=== PATIENT | female | born 1960 | race African-American/Black ===

== ENCOUNTER 2017-02-28 06:29 | Emergency (ER) | payer BC ==
[~2017-02-28] VITALS: Ht 165.1 cm; Wt 83.0 kg
[~2017-02-28 06:29] MED LIST: ANACIN PO; ASPIRIN EC81 MG PO; DEXILANT30 MG PO; GLUCOPHAGE500 MG PO; Glucophage PO; KLOR-CON M2020 MEQ PO; LASIX 20 MG20 MG/TAB PO; LEVEMIR FL100 UNIT/M SC; LISINOPRIL10 MG PO; MECLIZINE25 MG PO; NAPROSYN500 MG PO; NOVOLIN 70/30 SC; PRAVASTATIN SOD20 MG PO; ZETIA10 MG PO
[2017-02-28 08:03] LABS: HEMATOCRIT 33.4 % (37.0-47.0); HEMOGLOBIN 11.8 g/dl (12.0-16.0); IMMATURE GRANULOCYTES 0.9 % (0.0-1.0); MEAN CELL VOLUME 98.5 fL CALC (80.0-100.0); MEAN CORPUSCULAR HGB 34.8 pG CALC (26.0-32.0); MEAN CORPUSCULAR HGB CONC 35.3 g/L CALC (32.0-36.0); NEUT# 3.15 thou/uL (2.00-7.15); RED BLOOD COUNT 3.39 mill/uL (4.20-5.60); RED CELL DISTRI WIDTH 13.2 % (11.5-15.5)
[2017-02-28 08:08] LABS: ALBUMIN 3.9 g/dL (3.2-5.0); ALKALINE PHOSPHATASE 167 u/l (38-126); ANION GAP 17 (6-22 (CALC)); BILIRUBIN, TOTAL 0.7 mg/dL (0.0-1.4); BUN 6 mg/dL (7-17); BUN/CREATININE RATIO 8 (12-20 (CALC)); CALCIUM 8.9 mg/dL (8.4-10.2); CARBON DIOXIDE 24 mmol/l (22-30); CHLORIDE 96 mmol/l (95-108); CREATININE 0.8 mg/dL (0.5-1.0); GFR > 60 ML/MIN (>=60 (CALC)); GFR FOR AFR.AMER. > 60 ML/MIN (>=60 (CALC)); GLUCOSE 153 mg/dL (65-105); POTASSIUM 3.1 mmol/l (3.5-5.1); SGOT/AST 101 u/l (14-36); SGPT/ALT 43 u/l (9-52); SODIUM 134 mmol/l (137-146); TOTAL PROTEIN 8.1 g/dL (6.3-8.2)
[2017-02-28 08:22] LABS: MYOGLOBIN 30 ng/mL (0 - 62)
[2017-02-28] MEDS ORDERED: PROTONIX40 M2 PO (08:36)
[2017-02-28] MEDS ORDERED: VICTOZA18 MG/3 ML SC (08:36)
[2017-02-28] MEDS ORDERED: NEURONTIN600 MG PO (08:37)
[2017-02-28 09:21] LABS: URINE BILIRUBIN - DIPSTICK NEGATIVE (NEGATIVE); URINE BLOOD DIPSTICK NEGATIVE (NEGATIVE); URINE CLARITY CLEAR; URINE COLOR YELLOW; URINE GLUCOSE - DIPSTICK NEGATIVE (NEGATIVE); URINE KETONE NEGATIVE (NEGATIVE); URINE LEUK ESTERASE NEGATIVE (NEGATIVE); URINE NITRITE - DIPSTICK NEGATIVE (Negative); URINE PROTEIN - DIPSTICK NEGATIVE (NEG-TRACE); URINE SPECIFIC GRAVITY <=1.005; URINE UROBILINOGEN - DIPSTICK 0.2 E.U./dL (0.2)
[2017-02-28 09:29] LABS: BARBITURATES NEGATIVE (NEGATIVE); COCAINE NEGATIVE (NEGATIVE); METHADONE NEGATIVE (NEGATIVE); OXCYCODONE NEGATIVE (NEGATIVE); TETRAHYDROCANNABIONOL NEGATIVE (NEGATIVE); TRICYLIC ANTIDEPRESSANTS NEGATIVE (NEGATIVE)
[2017-02-28 10:01] VITALS: BP 101/68
== END 2017-02-28 10:01 | disposition home or self-care (01) | DRG 948 ==
LOC: ED 06:29
PROVIDERS: Emergency Medicine
DX: R53.1 Weakness (principal); I10 Essential (primary) hypertension; E87.6 Hypokalemia; R42 Dizziness and giddiness

== ENCOUNTER 2017-12-21 22:25 | Emergency (ER) | payer BC ==
[~2017-12-21] VITALS: Ht 165.1 cm; Wt 79.5 kg
[~2017-12-21 22:25] MED LIST changes: +NEURONTIN600 MG PO; +PROTONIX40 M2 PO; +VICTOZA18 MG/3 ML SC
[2017-12-21 23:30] LABS: HEMATOCRIT 22.7 % (37.0-47.0); HEMOGLOBIN 7.8 g/dl (12.0-16.0); IMMATURE GRANULOCYTES 0.7 % (0.0-5.0); MEAN CELL VOLUME 107.6 fL CALC (80.0-100.0); MEAN CORPUSCULAR HGB CONC 34.4 g/L CALC (32.0-36.0); NEUT# 1.56 thou/uL (2.00-7.15); RED BLOOD COUNT 2.11 mill/uL (4.20-5.60); RED CELL DISTRI WIDTH 22.9 % (11.5-15.5)
[2017-12-22 00:22] VITALS: BP 99/64
== END 2017-12-22 00:23 | disposition home or self-care (01) | DRG 316 ==
LOC: ED 22:25
PROVIDERS: Family Medicine
DX: R58 Hemorrhage, not elsewhere classified (principal); C50.912 Malignant neoplasm of unspecified site of left female breast

== ENCOUNTER 2018-01-02 09:55 | Emergency (ER) | payer BC ==
[~2018-01-02] VITALS: Ht 165.1 cm; Wt 90.0 kg
[2018-01-02 10:50] VITALS: BP 144/88
== END 2018-01-02 10:45 | disposition home or self-care (01) | DRG 951 ==
LOC: ED 09:55
DX: Z48.00 Encounter for change or removal of nonsurgical wound dressing (principal); C76.1 Malignant neoplasm of thorax; E11.9 Type 2 diabetes mellitus without complications; I10 Essential (primary) hypertension; Z85.3 Personal history of malignant neoplasm of breast; Z90.12 Acquired absence of left breast and nipple

== ENCOUNTER 2018-01-07 04:46 | Emergency (ER) | payer BC ==
[~2018-01-07] VITALS: Ht 165.1 cm; Wt 79.1 kg
[2018-01-07] MEDS ORDERED: CALCIUM + D600 MG PO (04:54)
[2018-01-07 05:41] VITALS: BP 153/94
== END 2018-01-07 05:50 | disposition home or self-care (01) | DRG 951 ==
LOC: ED 04:46
DX: Z48.00 Encounter for change or removal of nonsurgical wound dressing (principal); C76.1 Malignant neoplasm of thorax; R58 Hemorrhage, not elsewhere classified

== ENCOUNTER 2018-01-12 13:23 | Emergency (ER) | payer BC ==
[~2018-01-12] VITALS: Ht 165.1 cm; Wt 135.0 kg
[~2018-01-12 13:23] MED LIST changes: +CALCIUM + D600 MG PO
[2018-01-12 15:30] VITALS: BP 127/82
== END 2018-01-12 15:55 | disposition home or self-care (01) | DRG 951 ==
LOC: ED 13:23
DX: Z48.00 Encounter for change or removal of nonsurgical wound dressing (principal); C50.912 Malignant neoplasm of unspecified site of left female breast; E11.9 Type 2 diabetes mellitus without complications; I10 Essential (primary) hypertension; Z90.12 Acquired absence of left breast and nipple

== ENCOUNTER 2018-02-25 20:58 | Inpatient (IN) | payer BC ==
[~2018-02-25] VITALS: Ht 165.1 cm; Wt 76.0 kg
--- NOTE | 2018-02-25 21:12 | NUR ---
PT. TO ROOM 6 WITH ASSIT AND C/O FEVER 102.7. PT. HAS LARGE WOUND TO LEFT CHEST WALL AND LEFT AXILLARY TO LEFT BACK. PT. ALSO HAS LARGE AREA TO LEFT THIGH FROM A SKIN GRAFT. WOUND TO LEFT CHEST WALL HAS YELLOW SLOUGH AND AREAS OF GREEN TISSUE. PT. STAES SHE HAD A LEFT MASTECTOMY 3 YEARS AGO AND THEN JUST A FEW MONTHS AGO SHE WAS DIAGNOISED WITH SKIN CA TO LEFT CHEST WALL WHERE SHE WENT TO [facility] IN [place] FOR A SKIN GRAFT. THE PT. DAUGHTED STATED," THE SKIN GRAFT NEVER TOOK." THE SKIN GRAFT SITE TO THE LEFT THIGHT HAS PINK TISSUE, NO S/S OF INFECTION NOTED. PT. DAUGHTER STATES SHE CHANGED HER MOTHERS DRESSING TONIGHT AND SHE STATED, " HER WOUND DID NOT HAVE THAT YELLOW STUFF IN IT, THAT JUST HAPPENED." MD AT BEDSIDE. WOUNDS REDRESSED WITH ADAPTIC, 4X4'S AND JALEESA. PER MD ORDER.
--- NOTE | 2018-02-25 21:17 | NUR ---
PT TO ROOM PER W/C
[2018-02-25] MEDS ORDERED: LORTAB5 PO (21:19)
[2018-02-25 22:26] LABS: HEMATOCRIT 29.7 % (37.0-47.0); IMMATURE GRANULOCYTES 0.6 % (0.0-5.0); MEAN CORPUSCULAR HGB 31.3 pG CALC (26.0-32.0); MEAN CORPUSCULAR HGB CONC 33.7 g/L CALC (32.0-36.0); NEUT# 14.93 thou/uL (2.00-7.15); RED BLOOD COUNT 3.2 mill/uL (4.20-5.60); RED CELL DISTRI WIDTH 17.2 % (11.5-15.5)
[2018-02-25 22:28] LABS: MEAN CELL VOLUME 92.8 fL CALC (80.0-100.0)
[2018-02-25 22:36] LABS: INFLUENZA A NONE DETECTED (NONE DETECT); INFLUENZA B NONE DETECTED (NONE DETECT)
[2018-02-25 22:37] LABS: ALBUMIN 3.7 g/dL (3.2-5.0); ALKALINE PHOSPHATASE 277 u/l (38-126); ANION GAP 17 (6-22 (CALC)); BILIRUBIN, TOTAL 0.9 mg/dL (0.0-1.4); BUN 9 mg/dL (7-17); BUN/CREATININE RATIO 14 (12-20 (CALC)); CARBON DIOXIDE 26 mmol/l (22-30); CHLORIDE 90 mmol/l (95-108); CREATININE 0.6 mg/dL (0.5-1.0); GFR > 60 ML/MIN (>=60 (CALC)); GFR FOR AFR.AMER. > 60 ML/MIN (>=60 (CALC)); SGOT/AST 51 u/l (14-36); SODIUM 129 mmol/l (137-146); TOTAL PROTEIN 8.4 g/dL (6.3-8.2)
--- NOTE | 2018-02-25 22:37 | NUR ---
IVF STARTED PER MD ORDER.
[2018-02-25 22:41] LABS: POTASSIUM 4.2 mmol/l (3.5-5.1)
--- NOTE | 2018-02-25 22:48 | NUR ---
IV ABT. STARTED PER MD ORDER.
--- NOTE | 2018-02-25 22:55 | NUR ---
po tylenol given as per md order.
--- NOTE | 2018-02-25 23:52 | NUR ---
PURWICK CATH APPLIED AFTER PT. TRIED TO VOID ON BSC AND COULD NOT.
[2018-02-26] VITALS (12 sets, daily range): BP systolic 106–133; BP diastolic 72–87
--- NOTE | 2018-02-26 00:50 | NUR ---
PT. TEMP. NOW 100.2. AWARE.
--- NOTE | 2018-02-26 01:00 | NUR ---
PURWICK CATH DRAINED 350 ML CLEAR SONYA URINE.
--- NOTE | 2018-02-26 01:02 | NUR ---
MD IN ROOM TO DISCUSS CLINICAL FINDINGS WITH PT. AND FAMILY AND ALSO MAKE THEM AWARE OF ADMISSION. VERBALIZED UNDERSTANDING.
[2018-02-26] MEDS ORDERED: MV-ONE PO (01:26)
[2018-02-26] MEDS ORDERED: VITAMIN D400 UNI1 PO (01:27)
[2018-02-26] MEDS ORDERED: PERCOCET 5/321 COMBO PO (01:28)
[2018-02-26] MEDS ORDERED: DOCUSATE CAL240 MG PO (01:29)
[2018-02-26] MEDS ORDERED: ZOFRAN ODT4 MG PO (01:30)
[2018-02-26] MEDS ORDERED: PRAVASTATIN SOD20 MG PO (01:31)
[2018-02-26] MEDS ORDERED: PROTONIX40 M2 PO (01:32)
[2018-02-26] MEDS ORDERED: FUROSEMIDE20 MG PO (01:33)
[2018-02-26] MEDS ORDERED: VICTOZA18 MG/3 ML SC (01:37)
--- NOTE | 2018-02-26 01:38 | NUR ---
Admission Note Report Given to: NESHA MAURICIO Transported by: Wheelchair X Stretcher Transported with: X Nurse Transporter X Patent IV O2 Pull Worker
--- NOTE | 2018-02-26 01:50 | NUR ---
PT. TAKEN TO ICU VIA STRETCHER, NO C/O.
--- NOTE | 2018-02-26 01:55 | NUR ---
RECEIVED FROM ER VIA STRETCHER ACCOMPANIED BY MIKEL RN, PT A/O X3, RESPIRATIONS EVEN AND UNLABORED ON RA, AMBULATING TO BED WITH SLOW STEADY GAIT. ADMITS PAIN TO LEFT LATERAL THIGH HEALING WOUND, DUE TO SKIN GRAFT, LEFT CHEST AND LEFT UNDER ARM WOUND DUE TO A SKIN GRAFT THAT DID NOT TAKE, PAIN 2/10, DENIES CHANGE IN PAIN LEVEL STATES PAIN IS USUALLY A 2/10. TEMP 98.2 AT THIS TIME, SR ON HEART MONITOR RATE 90'S. B/P 109/72, O2 SAT 100%. ORIENTED TO BED CONTROLS AND CALL LIGHT FOR ASSISTANCE, PO FLUIDS IN REACH. WILL CONTINUE TO MONITOR.
--- NOTE | 2018-02-26 03:34 | NUR ---
OOB TO BSC, VOIDING 400ML OF CLEAR YELLOW URINE, THEN BACK TO BED. CALL LIGHT IN REACH.
--- NOTE | 2018-02-26 04:40 | NUR ---
OOB TO BSC, VOIDING 200ML OF CLEAR YELLOW URINE, THEN BACK TO BED. CALL LIGHT IN REACH.
--- NOTE | 2018-02-26 06:45 | NUR ---
OOB TO BSC VOIDING 400ML OF CLEAR YELLOW URINE THEN BACK TO BED. CALL LIGHT IN REACH.
--- NOTE | 2018-02-26 07:25 | NUR ---
PT RESTING QUIETLY AT THIS. BLOOD SUGAR CHECKED AT THIS TIME. ACCU 53. PT PROVIDED ORANGE JUICE AND ENCOURAGED TO DRINK. PT ASYMPTOMATIC AT THIS TIME. PT AFEBRILE 98.3. ASSESMENT COMPLETED AT THIS TIME(SEE INTERVENTIONS). LUNG SOUNDS CLEAR BILATERALLY. HEART SOUNDS REGULAR. TELEMETRY READING 96. BOWEL SOUNDS ACTIVE. #20 IN THE LAC INFUSING WELL, FREE FROM REDNESS OR EDEMA. DRESSINGS TO LEFT CHEST AND AUXILLARY, AND LEFT LEG INTACT. NO DRAINAGE OR SHADOWING. PT HAVING NO PAIN UNLESS TURNING ON AFFECTED SIDE. UP TO [facility] WITH STAND BY ASSIST AND SETTLED BACK INTO BED. CALL MUÑOZ IN REACH. WILL CONTINUE TO MONITOR.
--- NOTE | 2018-02-26 08:40 | NUR ---
FROM [facility] SPOKE TO DR VINSON. POSSIBLE TRANSFER TO THEM FOR CONTINUED CARE.
--- NOTE | 2018-02-26 08:50 | NUR ---
DR VINSON IN TO SPEAK WITH PT ABOUT PLAN OF CARE AND POSSIBLE TRANSFER TO [facility]. DR VINSON TO LOOK AT WOUND ON LEFT SIDE. PT VOICES UNDERSTANDING TO PLAN OF CARE.
--- NOTE | 2018-02-26 09:00 | NUR ---
PT WOUND APPEARS TO HAVE SOME (>75%) SLOUGH TISSUE WITH SOME GRANULATION. SMALL SCATTERED ESCHAR NOTED TO SOME AREAS WELL (<10%). WOUND EXTENDS FROM LEFT CHEST WALL (FROM MASTECTOMY) INTO AXILLARY AND AROUND TO BACK. MEASURING 29x17x 0.5 cm. FEW SUTURES NOTED TO BACK.BRANDY WOUND AREA AROUND BACK AND TOP LEFT SHOULDER AREAS SWOLLEN. SMALL AMOUNT OF SEROUS DRAINAGE NOTED FROM WOUND. DRESSING REAPPLIED; XEROFORM APPLIED TO WOUND BASE,COVERED WITH GAUZE AND ABD PADS, SECURED WITH PAPER TAPE. PT TOLERATED WELL.
[2018-02-26 10:47] LABS: URINE BILIRUBIN - DIPSTICK NEGATIVE (NEGATIVE); URINE BLOOD DIPSTICK NEGATIVE (NEGATIVE); URINE COLOR YELLOW; URINE GLUCOSE - DIPSTICK NEGATIVE (NEGATIVE); URINE KETONE NEGATIVE (NEGATIVE); URINE LEUK ESTERASE NEGATIVE (Negative); URINE NITRITE - DIPSTICK NEGATIVE (Negative); URINE PROTEIN - DIPSTICK NEGATIVE (NEG-TRACE); URINE SPECIFIC GRAVITY 1.015; URINE UROBILINOGEN - DIPSTICK 0.2 E.U./dL (0.2)
[2018-02-26 10:55] LABS: URINE CLARITY CLEAR
--- NOTE | 2018-02-26 11:00 | NUR ---
PT UP TO RESTROOM. VISITORS AT BED SIDE AT THIS TIME.
--- NOTE | 2018-02-26 12:00 | NUR ---
OOB TO BSC WITH STAND BY ASSIST, TOLERATES ACTIVITY WELL MOVING SLOWLY. PT INDEPENDENT WITHPERI CARE, AND BACK WOT BE WITH SAME ASSIST, VOIDS APPROX 250-300 ML WITH EACH VOID, CALL MUÑOZ WITHIN REACH, REPOSITIONS SELF FOR COMFORT; VISITORS REMAIN AT BEDSIDE
--- NOTE | 2018-02-26 13:25 | NUR ---
PT RESTING QUIETLY IN BED WITH VISITOR STILL AT BED SIDE. IV INFUSING WELL, NO REDNESS OR EDEMA NOTED. CALL MUÑOZ INREACH..WILL CONTINUE TO MONITOR.
--- NOTE | 2018-02-26 13:40 | NUR ---
PT OOB TO BSC WITH SBA ASSIST, TOLERATES ACTIVITY WELL, BACK TO BED WITH SAME ASSIST, FAMILY MEMBERS REMAIN AT BEDSIDE.
--- NOTE | 2018-02-26 13:46 | NUR ---
PT UP TO BSC. STANDBY ASSIST. WILL CONTINUE TO MONITOR.
--- NOTE | 2018-02-26 13:52 | NUR ---
S: BHARAT COOPER is a 57 F who presents with fever. She has a history of diabetes, HTN, anemia, and breast CA. All medications in patient's chart were reviewed. VS: BP <116/77>, P<87>, RR<16>,T<98.0> W <76.36 kg>, HT<165.1 cm>, Scr=<0.6>,CrCl= <100 ml/min> Blood culture is pending. Urine culture is pending. P: Patient is on zosyn 3.375 gm IV Q6H and vancomycin 1250 mg IV Q12H. Vancomycin ordered for pharmacy to dose. Start Vancomycin 1250 mg IV Q12H. Vancomycin trough is drawn before the 4th dose on 02/27/2018 at 0930. Vancomycin goal trough is between 15-20 mcg/ml. Pharmacy will follow and or advise on antibiotics use as needed.
--- NOTE | 2018-02-26 15:10 | NUR ---
CALLED [facility] FOR UPDATE REGARDING ACCEPTANCE AND BED ASSIGNMENT; WAITING FOR OK TO ACCEPT FROM THEN THEY WILL CALL US WITH BED PLACEMENT.
--- NOTE | 2018-02-26 15:20 | NUR ---
DR HANSON AT [facility] CONSULTATION.
--- NOTE | 2018-02-26 15:45 | NUR ---
PT UP TO BSC. FAMILY AT BEDSIDE. WILL CONTINUE TO MONITOR.
--- NOTE | 2018-02-26 16:45 | NUR ---
PT UP TO BSC VOIDING CLEAR YELLOW URINE. MULTIPLE VISITORS IN AND OUT. CONSISTENTLY COMPLAINS ABOUT ALL THE WIRES AND IV FLUIDS. ASKING WHEN SHE WILL BE TRASNSFERED TO [facility]. PT GIVEN UPDATE. WILL CONTINUE TO MONITOR. CALL MUÑOZ IN REACH.
--- NOTE | 2018-02-26 18:31 | NUR ---
PT FINSHED WITH PM MEAL. CONTINUES COMPLAINING OF WIRES AND FLUIDS. EDUCATED REGARDING ICU PROTOCOL. VERBALIZES UNDERSTANDING. OOB TO BSC INDEPENDENTLY. VOIDED CLEAR YELLOW URINE. AWAITING [facility] CALL BACK. IV INFUSING WELL. CALL MUÑOZ IN REACH. WILL CONTINUE TO MONITOR.
--- NOTE | 2018-02-26 19:00 | NUR ---
awake. no acute distress. research instructor shows sinus rhythm. #20 rac ns infusing @ 125cchr. po fluids taken fair. up to bsc. voided well. dsgs to lt chest & lt thigh cdi. fall precautions cont.
--- NOTE | 2018-02-26 22:59 | NUR ---
PT GOT HERSELF UP TO BSC TO VOID. EXPLAINED TO PT THAT WE WOULD BE HAPPY TO HELP. SHE STATED SHE UNDERSTOOD WE WERE IN ANOTHER ROOM AND SHE DENIES DIZZINESS. REINFORCED USE OF CALL LIGHT. PT VERBALIZED UNDERSTANDING. PT ASSISTED BACK TO BED. CALL LIGHT IN REACH. WILL CONTINUE OT MONITOR.
[2018-02-27] VITALS (7 sets, daily range): BP systolic 125–154; BP diastolic 71–85
--- NOTE | 2018-02-27 00:01 | NUR ---
up freq to bsc. no c/o pain voided. clinical research monitor shows sinus rhythm.
--- NOTE | 2018-02-27 02:00 | NUR ---
up to bsc. viktoria well. no distress.
--- NOTE | 2018-02-27 05:00 | NUR ---
blood drawn & sent to lab.
--- NOTE | 2018-02-27 05:58 | NUR ---
no acute change in condition. up approx hourly to void. viktoria well.
--- NOTE | 2018-02-27 06:45 | NUR ---
RECIEVED REPORT FROM LULY AMADOR. [facility] FARMMED PT CARE.
--- NOTE | 2018-02-27 07:30 | NUR ---
PT A&OX3, ABLE TO MAKE NEEDS KNOWN. PT REMAINS SR ON TELEMETRY, HR 88, B/P 133/83, T-98, RR-26, SA02@96% RA. PT DENIES CHEST PAIN, SOB OR DISTRESS AT THIS TIME. RESPIRATIONS EVEN/UNLABORED, LS CLEAR THROUGHOUT. ABDOMEN SOFT/NON-TENDER. PT STATES LAST BM 02-25-18, HX OF COLACE USE REGULARLY. BSX4 ACTIVE, PASSING GAS. PT SBA TO BSC, URINE NOT INSPECTED. PT DENIES PAIN/BURNING WITH URINATION. DRESSING TO L BREAST/AUXILLARY CDI, DRESSING TO L THIGH CDI. JUAN'S BLE INTACT, 20G TO RAC INFUSING NS @125ML/HR, NO S/S OF INFILTRATION NOTED AT SITE. PT RESTING IN BED, OFFERS NO COMPLAINTS AT THIS TIME. BED IN LOWEST POSITION, CALL LIGHT IN REACH, WILL MONITOR.
--- NOTE | 2018-02-27 07:45 | NUR ---
CALLED [facility] , SPOKE WITH RAH, PLACEMENT PENDING; WAITING FOR DR. BROWN TO ACCEPT PT, PER RAH, SHE HAS JUST PLACED ANOTHER CALL TO DR. SIMS, AWAITING CALL BACK. PT INFORMED AND UPDATED.
--- NOTE | 2018-02-27 08:00 | NUR ---
PT DAUGHTER AT BEDSIDE FOR VISIT.
--- NOTE | 2018-02-27 08:30 | NUR ---
PT ASSISTED TO BSC, THEN BACK TO BED. PT TOLERATED TRANSFER WELL. CALL LIGHT IN REACH, WILL MONITOR.
--- NOTE | 2018-02-27 09:05 | NUR ---
DIETARY AT BEDSIDE TO PLACE LUNCH ORDER. DAUGHTER REMAINS AT THE BEDSIDE.
--- NOTE | 2018-02-27 09:32 | NUR ---
LAB AT BEDSIDE TO DRAW VANCO TROUGH.
--- NOTE | 2018-02-27 09:45 | NUR ---
PT ASSISTED TO BSC, ASSISTED BACK TO BED. CALL LIGHT IN REACH, WILL MONITOR.
--- NOTE | 2018-02-27 10:55 | NUR ---
SPOKE WITH GIOVANY @ [facility] BED 3N RM#[id number] AVAILABLE, ADMITTING PHYSICIAN DR. BROWN. PT UPDATED, FAMILY REMAINS AT BEDSIDE.
--- NOTE | 2018-02-27 11:00 | NUR ---
[facility] NOTIFIED FOR TRANSPORT, ETA 30MIN, PER JORGE A. REPORT GIVEN.
--- NOTE | 2018-02-27 11:05 | NUR ---
PT ASSISTED TO BSC, THEN BACK TO BED. PT TOLERATED WELL. CALL LIGHT IN REACH.
--- NOTE | 2018-02-27 11:25 | NUR ---
[facility] TRANSPORT ON UNIT, REPORT GIVEN TO KERRI.
--- NOTE | 2018-02-27 11:58 | NUR ---
PT LEFT VIA STRETCHER FOR [facility] TO 3N RM#[id number] WITH [facility].
--- NOTE | 2018-02-27 12:15 | NUR ---
REPORT CALL ED TO , SPOKE WITH ANDREA Bill. THE RN ACCEPTING PT TO CALL BACK FOR REPORT, PER KATHLEEN.
--- NOTE | 2018-02-27 12:30 | NUR ---
RECIEVED CALLED FROM LESLY MORALES WITH [facility]. REPORT GIVEN.
== END 2018-02-27 11:58 | disposition designated cancer center or children's hospital (05) | DRG 919 ==
LOC: ED 20:58 → ED-I 21:35 → ED 21:35 → ED-I 02-26 00:40 → ED 02-26 01:00 → ICU 02-26 01:01
PROVIDERS: Emergency Medicine; Internal Medicine; ADMIT Internal Medicine; ATTEND Internal Medicine
DX: T86.822 Skin graft (allograft) (autograft) infection (principal); A41.9 Sepsis, unspecified organism; E87.1 Hypo-osmolality and hyponatremia; C50.912 Malignant neoplasm of unspecified site of left female breast; T50.2X5A Adverse effect of carbonic-anhydrase inhibitors, benzothiadiazides and other diuretics, initial encounter; I10 Essential (primary) hypertension; E11.9 Type 2 diabetes mellitus without complications; Y83.2 Surgical operation with anastomosis, bypass or graft as the cause of abnormal reaction of the patient, or of later complication, without mention of misadventure at the time of the procedure; Z90.12 Acquired absence of left breast and nipple; Z92.3 Personal history of irradiation; Z92.21 Personal history of antineoplastic chemotherapy; Z79.4 Long term (current) use of insulin
CPT/HCPCS: J3370; S0164

== ENCOUNTER 2018-07-13 22:31 | Observation (INO) | payer BC ==
[~2018-07-13] VITALS: Ht 165.1 cm; Wt 78.5 kg
[~2018-07-13 22:31] MED LIST changes: +DOCUSATE CAL240 MG PO; +FUROSEMIDE20 MG PO; +LORTAB5 PO; +MV-ONE PO; +PERCOCET 5/321 COMBO PO; +VITAMIN D400 UNI1 PO; +ZOFRAN ODT4 MG PO
[2018-07-13 23:12] LABS: HEMATOCRIT 25.4 % (37.0-47.0); HEMOGLOBIN 8.6 g/dl (12.0-16.0); IMMATURE GRANULOCYTES 0.5 % (0.0-5.0); MEAN CELL VOLUME 92.7 fL CALC (80.0-100.0); MEAN CORPUSCULAR HGB 31.4 pG CALC (26.0-32.0); MEAN CORPUSCULAR HGB CONC 33.9 g/L CALC (32.0-36.0); NEUT# 2.13 thou/uL (2.00-7.15); RED BLOOD COUNT 2.74 mill/uL (4.20-5.60); RED CELL DISTRI WIDTH 17.3 % (11.5-15.5)
[2018-07-13 23:21] LABS: ALBUMIN 3.2 g/dL (3.2-5.0); ALKALINE PHOSPHATASE 287 u/l (38-126); BILIRUBIN, TOTAL 0.7 mg/dL (0.0-1.4); BUN 6 mg/dL (7-17); BUN/CREATININE RATIO 11 (12-20 (CALC)); CARBON DIOXIDE 24 mmol/l (22-30); CHLORIDE 84 mmol/l (95-108); CREATININE 0.5 mg/dL (0.5-1.0); GFR > 60 ML/MIN (>=60 (CALC)); GFR FOR AFR.AMER. > 60 ML/MIN (>=60 (CALC)); POTASSIUM 3.9 mmol/l (3.5-5.1); SGOT/AST 62 u/l (14-36)
[2018-07-13 23:27] LABS: ACT PARTIAL THROMBO TIME 29.6 SECONDS (20.0-32.5); ANION GAP 18 (6-22 (CALC)); PROTHROMBIN TIME 10.6 SECONDS (9.0-12.5); SODIUM 122 mmol/l (137-146); TOTAL PROTEIN 6.7 g/dL (6.3-8.2)
--- NOTE | 2018-07-13 23:30 | NUR ---
LACTIC ACID 3.2. AWARE
[2018-07-14 00:49] LABS: URINE BILIRUBIN - DIPSTICK NEGATIVE (NEGATIVE); URINE BLOOD DIPSTICK LARGE (NEGATIVE); URINE COLOR YELLOW; URINE GLUCOSE - DIPSTICK NEGATIVE (NEGATIVE); URINE KETONE NEGATIVE (NEGATIVE); URINE LEUK ESTERASE TRACE (Negative); URINE NITRITE - DIPSTICK NEGATIVE (Negative); URINE PROTEIN - DIPSTICK NEGATIVE (NEG-TRACE); URINE SPECIFIC GRAVITY <=1.005; URINE UROBILINOGEN - DIPSTICK 0.2 E.U./dL (0.2)
[2018-07-14 00:53] LABS: URINE CLARITY CLEAR
[2018-07-14 01:02] LABS: URINE RBC 0-2 RBC/hpf (0-5); URINE SQUAMOUS EPITHELIAL CELL RARE EPI/hpf (0-FEW); URINE WBC 0-2 WBC/hpf (0-5)
--- NOTE | 2018-07-14 01:57 | NUR ---
REPEAT LACTIC ACID 3.1
--- NOTE | 2018-07-14 03:57 | NUR ---
MOTRIN GIVEN FOR FEVER.
--- NOTE | 2018-07-14 04:35 | NUR ---
REPORT TO LESLY AGUILAR.
--- NOTE | 2018-07-14 04:45 | NUR ---
PT USING BEDPAN FREQUENTLY. AND NOW GETTING UP TO BSC. FRESH DRESSINGS TO ROOM...PT WANTED DAUGHTER TO PUT NEW DRSG ON. PICTURES TAKEN OF LESIONS...AND POSTED. EKG COMPLETED AND PT TAKEN TO FLOOR WITH POCKET MONITOR. PT UPSET BECAUSE OF BEING COLD BUT TEMP IS UP AND BLANKETS REMOVED...PT JUST HAD SHEETS.
--- NOTE | 2018-07-14 04:52 | NUR ---
PT ARRIVED VIA STRETCHER ACCOMPANIED BY STAFF AT [id number]
[2018-07-14 05:00] VITALS: BP 107/67
--- NOTE | 2018-07-14 05:00 | NUR ---
SEPSIS WORKSHEET COMPLETED.
--- NOTE | 2018-07-14 05:00 | NUR ---
PT TO FLOOR WITH POCKET MONITOR. FAMILY HOME. PT AMBULATORY TO SCALE AND BED WITH WALKER.
--- NOTE | 2018-07-14 05:10 | NUR ---
ASSESSMENT IS COMPLETED: PT IS RELAXING IN BED IV SITE IS FREE FROM REDNESS OR EDEMA. HR IS REG,PULSES ARE STRONG X4, ABD IS SOFT WITH ACTIVE BS. BREATH SOUNDS ARE CLEAR, BILATERALLY. TELE MONITOR IN PLACE. DRESSING ON LEFT BREAST, ARM PIT, AND BACK ARE CDI. CALL MUÑOZ WITHIN REACH. CONITNUE TO OBSERVE AND MONITOR.
[2018-07-14 08:05] LABS: HEMATOCRIT 23.9 % (37.0-47.0); HEMOGLOBIN 8.2 g/dl (12.0-16.0); IMMATURE GRANULOCYTES 0.5 % (0.0-5.0); MEAN CELL VOLUME 92.6 fL CALC (80.0-100.0); MEAN CORPUSCULAR HGB 31.8 pG CALC (26.0-32.0); MEAN CORPUSCULAR HGB CONC 34.3 g/L CALC (32.0-36.0); NEUT# 2.26 thou/uL (2.00-7.15); RED BLOOD COUNT 2.58 mill/uL (4.20-5.60); RED CELL DISTRI WIDTH 17.2 % (11.5-15.5)
[2018-07-14 08:16] VITALS: BP 100/65
--- NOTE | 2018-07-14 08:16 | NUR ---
PT RESTING IN BED, NO SIGNS OF DISTRESS NOTED, RESP EVEN AND UNLABORED. ALERT AND ORIENTED X3. PT HAS BREAST CA, UNDERGOING CHEMO AND SKIN GRAFT PROCEDURE RECENTLY, STATES "IT DIDN'T TAKE" DRESSINGS TO L BREAST AND TO HER BACK CDI. VSS, DISCUSSED POC, ASSESSMENT COMPLETED. CALL LIGHT IN REACH,CONTINUE TO MONITOR.
[2018-07-14 08:49] LABS: ALBUMIN 2.7 g/dL (3.2-5.0); ALKALINE PHOSPHATASE 255 u/l (38-126); ANION GAP 14 (6-22 (CALC)); BILIRUBIN, TOTAL 0.8 mg/dL (0.0-1.4); BUN 5 mg/dL (7-17); BUN/CREATININE RATIO 10 (12-20 (CALC)); CALCULATED LDLCHOLESTEROL 46 mg/dL (62-129 (CALC)); CARBON DIOXIDE 24 mmol/l (22-30); CHLORIDE 97 mmol/l (95-108); CHOLESTEROL HDL RATIO 1.8 (<4.4 (CALC)); CREATININE 0.5 mg/dL (0.5-1.0); GFR > 60 ML/MIN (>=60 (CALC)); GFR FOR AFR.AMER. > 60 ML/MIN (>=60 (CALC)); HDL CHOLESTEROL 66 mg/dL (>=40); POTASSIUM 3.8 mmol/l (3.5-5.1); SGOT/AST 47 u/l (14-36); SODIUM 131 mmol/l (137-146); TOTAL CHOLESTEROL 122 mg/dl (0-199); TOTAL PROTEIN 5.9 g/dL (6.3-8.2); TOTAL TRIGLYCERIDES 52 mg/dl (30-149); VLDL CHOLESTROL 10 mg/dl (2-49 (CALC))
[2018-07-14 11:36] VITALS: BP 111/75
--- NOTE | 2018-07-14 11:56 | NUR ---
PT SITTING IN RECLINER AT BEDSIDE, IV ZOSYN INITIATED, CALL LIGHT IN REACH,CONTINUE TO MONITOR.
[2018-07-14] MEDS ORDERED: CIPROFLOXACN500 MG PO ×2 (14:58→15:48)
--- NOTE | 2018-07-14 16:11 | NUR ---
DISCUSSED DISCHARGE INFORMATION WITH PT AND DAUGHTERS, ANTIBIOTIC PRESCRIPTION PROVIDED. IV REMOVED, CATHETER INTACT. DAUGHER REQUESTING TO DO DRESSING CHANGE HERE PRIOR TO LEAVING, INSTRUCTED TO CALL WHEN DONE SO PT MAY BE TAKEN DOWNSTAIRS. CONTINUE TO MONITOR.
--- NOTE | 2018-07-14 16:35 | NUR ---
Discharge instructions given. Patient verbalizes understanding of same. Discharged in stable condition via Wheelchair to Home with family. All belongings sent with pt.
== END 2018-07-14 16:35 | disposition home or self-care (01) | DRG 602 ==
LOC: ED 22:31 → ED-I 07-14 02:32 → ED 07-14 03:00 → MS2 07-14 03:10
PROVIDERS: Emergency Medicine; ADMIT Internal Medicine Nephrology; ATTEND Internal Medicine Nephrology
DX: L08.9 Local infection of the skin and subcutaneous tissue, unspecified (principal); D61.810 Antineoplastic chemotherapy induced pancytopenia; T86.821 Skin graft (allograft) (autograft) failure; C79.9 Secondary malignant neoplasm of unspecified site; E87.1 Hypo-osmolality and hyponatremia; C50.912 Malignant neoplasm of unspecified site of left female breast; T45.1X5A Adverse effect of antineoplastic and immunosuppressive drugs, initial encounter; E78.5 Hyperlipidemia, unspecified; I10 Essential (primary) hypertension; E11.9 Type 2 diabetes mellitus without complications; M19.90 Unspecified osteoarthritis, unspecified site; Y83.2 Surgical operation with anastomosis, bypass or graft as the cause of abnormal reaction of the patient, or of later complication, without mention of misadventure at the time of the procedure; Z79.899 Other long term (current) drug therapy
CPT/HCPCS: G0378

== ENCOUNTER 2018-09-17 06:27 | Inpatient (IN) | payer BC ==
[~2018-09-17] VITALS: Ht 165.1 cm; Wt 104.5 kg
[~2018-09-17 06:27] MED LIST changes: +CIPROFLOXACN500 MG PO
--- NOTE | 2018-09-17 06:56 | NUR ---
STEFANO SALES WARMER Applied at [id number] cent.
--- NOTE | 2018-09-17 07:15 | NUR ---
PATIENT RESTING STSTES BAIRHUGGER WARMING HER UP AND DOESNT FEEL COLD. PATIENT DENIES ANY PAIN OR SOB AT THIS TIME
[2018-09-17 07:18] LABS: IMMATURE GRANULOCYTES 0.8 % (0.0-5.0); MEAN CELL VOLUME 98.1 fL CALC (80.0-100.0); MEAN CORPUSCULAR HGB CONC 31.5 g/L CALC (32.0-36.0); NEUT# 12.68 thou/uL (2.00-7.15); RED BLOOD COUNT 3.23 mill/uL (4.20-5.60); RED CELL DISTRI WIDTH 17.2 % (11.5-15.5)
[2018-09-17 07:24] LABS: ANION GAP 17 (6-22 (CALC)); BUN 9 mg/dL (7-17); BUN/CREATININE RATIO 19 (12-20 (CALC)); CARBON DIOXIDE 26 mmol/l (22-30); CHLORIDE 92 mmol/l (95-108); CREATININE 0.4 mg/dL (0.5-1.0); GFR > 60 ML/MIN (>=60 (CALC)); GFR FOR AFR.AMER. > 60 ML/MIN (>=60 (CALC)); POTASSIUM 4.2 mmol/l (3.5-5.1); SODIUM 131 mmol/l (137-146)
[2018-09-17 07:35] LABS: HEMATOCRIT 31.7 % (37.0-47.0)
--- NOTE | 2018-09-17 07:47 | NUR ---
PATIENT RESTING AWAITING LAB AND RADIOLOGY RESULTS PATIENT DENIES ANY SOB OR CHEST PAIN AT THIS TIME. PATIENT REFUSING RECTAL TEMPERATURE
[2018-09-17 07:57] LABS: LIPASE 59 u/l (23-300)
[2018-09-17 08:10] LABS: MYOGLOBIN 88 ng/mL (0 - 62)
--- NOTE | 2018-09-17 10:45 | NUR ---
RECHECK ACCUCHECK 63. MEAL TRAY ORDERED. REPEAT TEMP 102.5. DAVID SALES STOPPED.
--- NOTE | 2018-09-17 11:51 | NUR ---
URINE COLLECTED VIA BEDPAN, MEAL TRAY PROVIDED.
[2018-09-17 12:07] LABS: URINE BILIRUBIN - DIPSTICK NEGATIVE (NEGATIVE); URINE BLOOD DIPSTICK NEGATIVE (NEGATIVE); URINE COLOR YELLOW; URINE GLUCOSE - DIPSTICK 100 mg/dL (NEGATIVE); URINE KETONE NEGATIVE (NEGATIVE); URINE LEUK ESTERASE NEGATIVE (NEGATIVE); URINE NITRITE - DIPSTICK NEGATIVE (Negative); URINE PROTEIN - DIPSTICK NEGATIVE (NEG-TRACE); URINE UROBILINOGEN - DIPSTICK 0.2 E.U./dL (0.2)
--- NOTE | 2018-09-17 13:06 | NUR ---
RECHECK 131 BS, TEMP 101.5.
[2018-09-17 14:35] VITALS: BP 118/68
--- NOTE | 2018-09-17 14:35 | NUR ---
PT TO ICU BED 5 VIA STRETCHER ACCOMPANIED BY ER NURSE. TRANSFERRED TO BED MAX ASSIST. ADMISSION ASSESSMENT COMPLETED AT THIS TIME. PT IS ALERT AND ORIENTED X3. IV PATENT X1. PT ORIENTED TO ROOM AND UNIT. PLACED ON MONITOR. CALL LIGHT IN REACH. WILL CONTINUE TO MONITOR
--- NOTE | 2018-09-17 14:50 | NUR ---
PT TAKEN TO ICU-5, REPORT WAS TO BLAKE.
--- NOTE | 2018-09-17 15:15 | NUR ---
FAMILY AT BEDSIDE.
--- NOTE | 2018-09-17 15:30 | NUR ---
DAUGHTERS CONCERNED ABOUT DRESSING CHANGED EXPLAINED THAT ORDERS FROM MD WOULD BE NEEDED FOR DRESSING CHANGES. FAMILY VERBALIZED UNDERSTANDING
--- NOTE | 2018-09-17 16:00 | NUR ---
ACCUCHECK 46 DR BETTS NOTIFIED. ORDER RECEIVED FOR D50. 1 AMP D50 IVP GIVEN PER JUL.
--- NOTE | 2018-09-17 16:10 | NUR ---
DR BETTS AT BEDSIDE TO DISCUSS PLAN OF CARE
--- NOTE | 2018-09-17 16:45 | NUR ---
DRESSINGS REMOVED. PICTURES OBTAINED. PT MEDICATED WITH PERCOCET PER JUL. FAMILY IN ROOM. THROUGHOUT DRESSING PATIENT CURSING AND THREATEN TO PUNCH STAFF. STAFF EXPLAINED THAT WE UNDERSTOOD DRESSING CHANGE WAS PAINFUL HOWEVER IT IS NOT APPROPRIATE TO PUNCH STAFF. PT WITH CONTINUOUS COMPLAINTS OF BEING COLD. CONTINUED REINFORCEMENT GIVEN THAT PATIENT HAS A FEVER AND HAS BEEN MEDICATED FOR FEVER AND CANNOT HAVE A BLANKET DUE TO FEVER. PT CONTINUES TO BE DISGRUNTLED TOWARDS STAFF. PICTURES PLACED ON CHART OF LESIONS.
--- NOTE | 2018-09-17 17:15 | NUR ---
PT SET UP FOR EVENING MEAL. DAUGHTER ASKED IF PT WOULD BE RECHECKED FOR ACCUCHECK PRIOR TO EATING EXPLAINED THAT HER SUGAR WAS CHECK AT 1600 AND IT WAS 46 AND SHE WAS MEDICATED FOR LOW BLOOD SUGAR AT THAT TIME AND A MEAL WOUL BE BENEFICIAL. NO NEED TO RECHECK AT THIS TIME SHE WOULD NOT REQUIRE INSULIN.
--- NOTE | 2018-09-17 17:20 | NUR ---
WHEN CHANGING PTS BANDAGES, PT THREATENED TO PUNCH ME IF I TOUCHED HER ARM AGAIN. PT C/O FREEZING AND WE NEEDED TO HURRY THE HELL UP AND COVER HER UP BC SHE WAS FREEZING. PT/FAMILY EDUCATED ON FEVERS. PT MEDICATED PRIOR TO REMOVING BANDAGES TO PHOTOGRAPH & REDRESS. PT CUSSING AT STAFF DURING DRESSING CHANGE. PT ASKED HER DAUGHTER TO COME LIFT HER ARM SO WE COULD BANDAGE UNDER IT THEN YELLED AT US WHEN HER DAUGHTER LIFTED ARM. AFTER COMPLETION, VISITORS SWITCHING PEOPLE THEMSELVES AT ICU ENTRANCE. VISITOR ASKED TO RING TONI BEFORE ENTERING. WHEN I BROUGHT PT HER DINNER TRAY, VISITOR STARTED YELLING THAT SHE "DIDNT HAVE TIME FOR FAKE ASS BITCHES". FINISHING PAN OPERATOR AWARE.
--- NOTE | 2018-09-17 17:50 | NUR ---
PT ASSISTED TO BED VALE TO VOID. FAMILY REQUESTED FOR PATIENT TO BE TRANSFERRED TO [facility] FLOOR BEFORE SHIFT CHANGE.
--- NOTE | 2018-09-17 18:00 | NUR ---
PT TRANSFERRED TO ROOM 263 VIA BED. PT ORIENTED TO ROOM AND MED SURG FLOOR WITH FAMILY. IT QUALITY ANALYST MADE AWARE OF FAMILY REQUEST. MED SURG STAFF AWARE OF PT STATUS AND PT ARRIVING TO FLOOR. CALL LIGHT IN REACH. FAMILY REMAINS IN ROOM WITH PT.
[2018-09-17 19:00] VITALS: BP 100/65
--- NOTE | 2018-09-17 19:30 | NUR ---
PAIENT RESTING IN BED AT THIS TIME AWAKE ALERT AND ORIENTEDX3 WITH HOB SLIGHTLY ELEVATED AND FAMILY AT BEDSIDE. PATIENT WITH IV SITE TO RIGHT AC INTACT AND APPEARS HEALTHY AT THIS TIME. BS-115 AT THIS TIME,. PATIENT WITH LARGE LESIONS TO LEFT BREASTS, UNDERARMS ABD UPPER ARMS AND THEN AROUND TO HER BACK. PAINFUL. POSITIONED ON RIGHT SIDE WITH PILLOWS. DRESSING TO LEFT BREAST INTACT AND THE REST OF THE AFFECTED AREA IS GILBERT ON PROTECTIVE PAD. EXTREMELY FOUL SMELLING. SAFETY PRECAUTIONS REINFORCED. CALL LIGHT IN REACH, P
--- NOTE | 2018-09-17 22:34 | NUR ---
PATIENT RESTING IN BED AT THIS TIME. AWAKE ALERT AND ORIENTEDX3. DAUGHTER AT BEDSIDE VISITING WITH PATIENT. PATIENT WITH IV SITE TO RIGHT AC-SITE IS HEALTHY AT THIS TIME. DESSING TO CHEST IN PLACE-CDI. SAFETY PRECAUTIONS REINFORCED. CALL LIGHT IN REACH. WILL CONT TO MONITOR.
--- NOTE | 2018-09-18 00:27 | NUR ---
PATIENT RESTING IN BED AT THIS TIME. PATIENT WITH LARGE LESIONS TO LEFT BREAST, UNDERARMS AND UPPER ARM-DRESSING INTACT TO LEFT BREAST AND OTHER AREAS ARE GILBERT ON PAD-VERY FOUL SMEELING AND PAINFUL. PATIENT REPOSITIONED WITH PILLOWS.MEDICATED WITH PERCOCET 5/325MG PO FOR PAIN. SAFETY PRECAUTIONS REINFORMED. CALL LIGHT IN REACH. WILL CONT TO MONITOR.
--- NOTE | 2018-09-18 04:21 | NUR ---
PATIENT APPEARS SLEEPING AT THIS TIME WITH HOB SLIGHTLY ELEVATED AND POSITIONED ON HER RIGHT SIDE WITH PILLOW. EYES CLOSED AND RESP EVEN AND UNLABORED. CALL LIGHT IN REACH. WILL CONT TO MONITOR.
[2018-09-18 05:05] LABS: IMMATURE GRANULOCYTES 0.8 % (0.0-5.0); MEAN CELL VOLUME 97.9 fL CALC (80.0-100.0); MEAN CORPUSCULAR HGB 31.1 pG CALC (26.0-32.0); MEAN CORPUSCULAR HGB CONC 31.8 g/L CALC (32.0-36.0); NEUT# 5.9 thou/uL (2.00-7.15); RED BLOOD COUNT 2.41 mill/uL (4.20-5.60); RED CELL DISTRI WIDTH 17.9 % (11.5-15.5)
[2018-09-18 05:08] LABS: HEMATOCRIT 23.6 % (37.0-47.0); HEMOGLOBIN 7.5 g/dl (12.0-16.0)
[2018-09-18 05:09] VITALS: BP 88/57
[2018-09-18 05:23] LABS: ALKALINE PHOSPHATASE 349 u/l (38-126); ANION GAP 9 (6-22 (CALC)); BILIRUBIN, TOTAL 0.3 mg/dL (0.0-1.4); BUN 7 mg/dL (7-17); BUN/CREATININE RATIO 15 (12-20 (CALC)); CARBON DIOXIDE 30 mmol/l (22-30); CHLORIDE 95 mmol/l (95-108); CREATININE 0.5 mg/dL (0.5-1.0); GFR > 60 ML/MIN (>=60 (CALC)); GFR FOR AFR.AMER. > 60 ML/MIN (>=60 (CALC)); LIPASE 28 u/l (23-300); MAGNESIUM 1.5 mg/dL (1.6-2.3); POTASSIUM 3.8 mmol/l (3.5-5.1); SODIUM 130 mmol/l (137-146)
[2018-09-18 05:26] LABS: ALBUMIN 1.9 g/dL (3.2-5.0); AMYLASE < 30 u/l (30-110); SGOT/AST 128 u/l (14-36); TOTAL PROTEIN 4.7 g/dL (6.3-8.2)
[2018-09-18 08:17] VITALS: BP 90/54
--- NOTE | 2018-09-18 08:55 | NUR ---
ASSESSMENT DONE. PT IS A&O X3. MEDICATED PT WITH PERCOCET FOR PAIN IN LEFT ARM 11/28. PETRONA ARMS ELEVATED. LEFT CHEST DRESSING IN PLACE WITH OLD YELLOW DRAINAGE NOTED. PT DENIES ANY OTHER NEEDS AT THIS TIME. CALL LIGHT IN REACH.
--- NOTE | 2018-09-18 09:26 | NUR ---
S: BHARAT COOPER is a 57 F who presents with <problem>. She has a history of FAILED SKIN GRAFT. All medications in patient's chart were reviewed. O: VS: BP 90/54, P 89, RR 18,T 98.7 W 104 kg, HT 65IN, Scr=0.5 ,CrCl= >100 ml/min A: Blood culture is pending AND show GRAM (+) COCCI which is sensitive to <>. P: Patient is on VANCOMYCIN PHARMACY TO DOSE. Vancomycin ordered for pharmacy to dose. Start Vancomycin 1250MG IV Q8H. Vancomycin trough is drawn before the 4th dose on 09/19/18 @ 0530. Vancomycin goal trough is between <10-15 mcg/ml>. Pharmacy will follow and or advise on antibiotics use as needed. DEENA KINGD
--- NOTE | 2018-09-18 09:55 | NUR ---
DR. BETTS AT BEDSIDE TO ASSESS PT AND DISCUSS POC WITH PT.
--- NOTE | 2018-09-18 10:36 | NUR ---
DR. MENDEZ AT BEDSIDE TO ASSESS PT.
[2018-09-18 11:00] LABS: HEMATOCRIT 23.9 % (37.0-47.0); HEMOGLOBIN 7.5 g/dl (12.0-16.0)
--- NOTE | 2018-09-18 12:00 | NUR ---
PT IS SITTING IN CHAIR EATING HER LUNCH AND VISITING WITH FAMILY IN ROOM. PT DENIES NEEDS AT THIS TIME.
--- NOTE | 2018-09-18 15:04 | NUR ---
DRESSING IN LEFT ARM/CHEST DONE ORDER. MEDICATED PT WITH OXYCODONE FOR PAIN 5/10 IN LEFT ARM SEE EMAR. FAMILY IN ROOM. PT DENIES ANY OTHER NEEDS AT THIS TIME. CALL LIGHT IN REACH.
[2018-09-18 15:19] VITALS: BP 124/53
[2018-09-18 19:00] VITALS: BP 90/48
--- NOTE | 2018-09-18 19:26 | NUR ---
PATIENT RESTING IN BED AT THIS TIME-AWAKE ALERT AND ORIENTEDX3. PATIENT APPEARS MORE ALERT TONIGHT. PATIENT ATE FAIR FOR DINNER. PATIENT WITH IV SITE TO LEFT HAND INTACT-APPEARS HEALTHY AT THIS TIME. DRESSING TO LEFT BREAST AREA ARE INTACT. SAFETY PRECAUTIONS REINFORCED.CALL LIGHT IN REACH. WILL CONT TO MONITOR.
--- NOTE | 2018-09-18 20:47 | NUR ---
PATIENT RESTING IN BED WATCHING [id number]. PATIENT STATES THAT SHE DOESN'T WAS LEVEMIR ORDERED TONIGHT. STATES THAT SHE CAN'T EAT HS SNACK AND AFRAID IT MAY GET TO LOW. CALL LIGHT IN REACH. WILL CONT TO MONITOR.
--- NOTE | 2018-09-18 23:32 | NUR ---
PATIENT ASSISTED ONTO BEDPAN TO VOID 200CC OF SONYA URINE AND TAKEN OFF. REPOSITIONED IN BED. LEFT HAND SWOLLEN AND ELEVATED ON PILLOW. VANCO INFUSING ORDERED. CALL LIGHT IN REACH. WILL CONT TO MONITOR.
[2018-09-19 04:00] VITALS: BP 102/63
--- NOTE | 2018-09-19 04:41 | NUR ---
PATIENT ASISTED ON AND OFF THE BEDPAN TO VOID SEVERAL TIMES THROUOUT THE NIGHT. DRESSING TO LEFT CHEST INTACT. CALL LIGHT IN REACH. WILL CONT TO MONITOR
[2018-09-19 05:56] LABS: HEMOGLOBIN 9.1 g/dl (12.0-16.0); IMMATURE GRANULOCYTES 0.9 % (0.0-5.0); MEAN CORPUSCULAR HGB 31.1 pG CALC (26.0-32.0); MEAN CORPUSCULAR HGB CONC 31.4 g/L CALC (32.0-36.0); NEUT# 5.39 thou/uL (2.00-7.15); RED BLOOD COUNT 2.93 mill/uL (4.20-5.60); RED CELL DISTRI WIDTH 17.4 % (11.5-15.5)
--- NOTE | 2018-09-19 06:14 | NUR ---
[facility] [phone] MAKENZIE OSORIO AND PHARM TO READDRESS UPON ARRIVAL THIS AM. WILL CONT TO MONITOR.
[2018-09-19 06:20] LABS: ALBUMIN 2.1 g/dL (3.2-5.0); ALKALINE PHOSPHATASE 381 u/l (38-126); ANION GAP 8 (6-22 (CALC)); BILIRUBIN, TOTAL 0.4 mg/dL (0.0-1.4); BUN 6 mg/dL (7-17); BUN/CREATININE RATIO 12 (12-20 (CALC)); CARBON DIOXIDE 31 mmol/l (22-30); CHLORIDE 98 mmol/l (95-108); CREATININE 0.5 mg/dL (0.5-1.0); GFR > 60 ML/MIN (>=60 (CALC)); GFR FOR AFR.AMER. > 60 ML/MIN (>=60 (CALC)); MAGNESIUM 1.4 mg/dL (1.6-2.3); POTASSIUM 3.7 mmol/l (3.5-5.1); SGOT/AST 107 u/l (14-36); SODIUM 133 mmol/l (137-146); TOTAL PROTEIN 5.2 g/dL (6.3-8.2)
--- NOTE | 2018-09-19 07:31 | NUR ---
S: BHARAT COOPER is a 57 F who presents with AMS. She has a history of BREAST CANCER AND SKIN GRAFT. All medications in patient's chart were reviewed. 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 Vancomycin ordered for pharmacy to dose. Start Vancomycin 1250MG IV Q12H. Vancomycin trough is drawn before the 4th dose on 09/21/2018 @0730 Vancomycin goal trough is between 15-20 mcg/ml. Pharmacy will follow and or advise on antibiotics use as needed. DEENA KINGD
[2018-09-19 08:20] VITALS: BP 99/65
--- NOTE | 2018-09-19 08:22 | NUR ---
REPORT WAS RECEIVED FROM MICHAEL. ASSESSMENT DONE. PT IS A&O X3. MEDICATED PT WITH OXYCODONE FOR PAIN LEFT ARM 11/28 SEE EMAR. LEFT ARM DRESSING IN PLACE WITH A FOUL SMELL. RESPS EVEN AND UNLABORED. PT DENIES ANY OTHER NEEDS AT THIS TIME. CALL LIGHT IN REACH.
--- NOTE | 2018-09-19 09:44 | NUR ---
PRELIMINARY BLOOD CULTURE RESULTS CALLED TO ON 09/18/18 @0730. 1 VIAL GROWING GRAM (+) COCCI. WOULD LIKE TO START [facility] TO DOSE. VANCOMYCIN 1.25GRAM Q8H WAS STARTED ON 09/18/18 @0800
--- NOTE | 2018-09-19 10:05 | NUR ---
DR. BETTS AT BEDSIDE TO DISCUSS POC WITH PT.
--- NOTE | 2018-09-19 12:20 | NUR ---
PT IS EATING HER LUNCH WITH NO S/S OF DISTRESS NOTED. PT DENIES NOTED AT THIS TIME. CALL LIGHT IN REACH.
--- NOTE | 2018-09-19 14:10 | NUR ---
DRESSING CHANGE DONE TO LEFT ARM. MODREATED DRAINAGE NOTED. LEFT ARM ELEVATED. PT STATED SHE IS COLD. TEMP CHECKED 98.1. MAKE ROOM WARM. PT DENIES ANY OTHER NEEDS AT THIS TIME. CALL LIGHT IN REACH.
--- NOTE | 2018-09-19 16:11 | NUR ---
PT VISITING IN ROOM WITH FAMILY. NO S/S OF DISTRESS NOTED. CALL LIGHT IN REACH.
--- NOTE | 2018-09-19 17:00 | NUR ---
PRUINE JUICE PROVIDE TO PT.
[2018-09-19 17:16] VITALS: BP 90/40
--- NOTE | 2018-09-19 19:17 | NUR ---
REPORT FROM SUMAYA GRACE. PT SITTING UP IN BED, ALERT AND ORIENTED. VISITORS AT BEDSIDE. PT DENIES ANY PAIN OR DISCOMFORT AT THIS TIME. DRESSING CDI. IV SITE APPEARS HEALTHY. DISCUSSED POC AND SAFETY PRECAUTIONS. PT VERBALIZED UNDERSTANDING. PT DENIES ANY OTHER WANTS OR NEEDS. CALL LIGHT WITHIN REACH. WILL CONTINUE TO MONITOR.
[2018-09-19 19:31] VITALS: BP 8/54
--- NOTE | 2018-09-19 20:15 | NUR ---
PT MEDICATED FOR PAIN. REPOSITIONED WITH PILLOWS. PT DENIES ANY OTHER WANTS OR NEEDS. CALL LIGHT WITHIN REACH. WILL CONTINUE TO MONITOR.
--- NOTE | 2018-09-20 00:32 | NUR ---
PT RESTING IN BED WITH EYES CLOSED. NO S/S OF DISTRESS NOTED. CALL LIGHT WITHIN REACH. WILL CONTINUE TO MONITOR.
--- NOTE | 2018-09-20 03:47 | NUR ---
PT MEDICATED FOR PAIN. REPOSITIONED WITH PILLOWS. CALL LIGHT WITHIN REACH. WILL CONTINUE TO MONITOR.
[2018-09-20 04:15] VITALS: BP 88/56
--- NOTE | 2018-09-20 07:30 | NUR ---
REPORT RECEIVED FROM LULY LI. PT IN SEMI-FOWLERS IN BED. ASSISTED BY STAFF X 2 TO SITTING POSITION. GENERALIZED WEAKNESS NOTED. LROM TO LEFT ARM R/T PAIN. ARMS ELEVATED. PT REPORTS MODERATE PAIN. PAIN MEDICATIONS AND SCHEDULES REVIEWED. CALL LIGHT REVIEWED AND IN REACH. ROUGH ROUNDER MACHINE ASSISTED PT W/ BEDPAN FOR VOIDING. 150 CC CLEAR YELLOW URINE OUTPUT.
[2018-09-20 07:51] VITALS: BP 91/54
[2018-09-20 08:35] VITALS: BP 91/54
--- NOTE | 2018-09-20 10:58 | NUR ---
DR. BETTS IN TO SEE PT. AT [facility] TIME. FAMILY AT BEDSIDE. DISCHARGE HOME TODAY DISCUSSED AND AGREED UPON.
[2018-09-20] MEDS ORDERED: DOXYCYCL HYC100 MG PO (12:10)
--- NOTE | 2018-09-20 13:30 | NUR ---
PT REFUSING DRESSING CHANGE AND PICTURES OF LESIONS FOR CHART AT THIS TIME. PT STATES SHE WILL BE SHOWERING AT HOME SOON SHE GETS THERE AND HER DAUGHTER WILL RE-APPLY HER DRESSINGS. PT ENCOURAGED TO SHOWER HERE PRIOR TO DISCHARGE, ALTHOUGH PT REFUSES.
--- NOTE | 2018-09-20 13:38 | NUR ---
Discharge instructions given. Patient verbalizes understanding of same. Discharged in stable condition via Wheelchair to Home with family. All belongings sent with pt.
== END 2018-09-20 13:42 | disposition home or self-care (01) | DRG 919 ==
LOC: ED 06:27 → ED-I 12:09 → ED 13:20 → MS2 13:21 → ICU 13:21 → MS2 18:00
PROVIDERS: Emergency Medicine; Family Medicine; ADMIT Internal Medicine Nephrology; ATTEND Internal Medicine Nephrology
DX: T86.822 Skin graft (allograft) (autograft) infection (principal); A41.1 Sepsis due to other specified staphylococcus; E43 Unspecified severe protein-calorie malnutrition; C79.81 Secondary malignant neoplasm of breast; E11.649 Type 2 diabetes mellitus with hypoglycemia without coma; E11.40 Type 2 diabetes mellitus with diabetic neuropathy, unspecified; D64.9 Anemia, unspecified; R68.0 Hypothermia, not associated with low environmental temperature; I10 Essential (primary) hypertension; E78.5 Hyperlipidemia, unspecified; M19.90 Unspecified osteoarthritis, unspecified site; C50.912 Malignant neoplasm of unspecified site of left female breast; E66.01 Morbid (severe) obesity due to excess calories; T45.1X5A Adverse effect of antineoplastic and immunosuppressive drugs, initial encounter; Y83.2 Surgical operation with anastomosis, bypass or graft as the cause of abnormal reaction of the patient, or of later complication, without mention of misadventure at the time of the procedure; Z79.4 Long term (current) use of insulin; Z90.12 Acquired absence of left breast and nipple; Z68.38 Body mass index [BMI] 38.0-38.9, adult; Z79.899 Other long term (current) drug therapy
CPT/HCPCS: J0131; J3370

== ENCOUNTER 2018-10-11 14:58 | Observation (INO) | payer BC ==
[~2018-10-11] VITALS: Ht 165.1 cm; Wt 71.0 kg
[~2018-10-11 14:58] MED LIST changes: +DOXYCYCL HYC100 MG PO
--- NOTE | 2018-10-11 15:00 | NUR ---
PT TO ROOM VIA EMS STRETCHER.
--- NOTE | 2018-10-11 15:40 | NUR ---
PATIENT HAS NECROTIC TISSUE TO LEFT BREAST AND LEFT ARM. PATIENT HAS HX OF BREAST CANCER. SWELLING NOTED TO LEFT UPPER EXTREMITY AND FOUL ODOR. PATIENT VOICES PAIN UPON MOVEMENT OF LEFT UPPER EXTREMITY. DR.BERNHART BILLS.
[2018-10-11 15:57] LABS: BASO% 0 % (0-3); EOS% 0 % (0-8); HEMATOCRIT 25.6 % (37.0-47.0); HEMOGLOBIN 8.6 g/dl (12.0-16.0); LYMPH% 8 % (15-41); MEAN CORPUSCULAR HGB 30.3 pG CALC (26.0-32.0); MEAN CORPUSCULAR HGB CONC 33.6 g/L CALC (32.0-36.0); MONO% 15 % (2-13); NEUT% 74 % (42-76); PLATELET COUNT 235 thou/uL (130-400); RED BLOOD COUNT 2.84 mill/uL (4.20-5.60); RED CELL DISTRI WIDTH 18.4 % (11.5-15.5)
[2018-10-11 16:27] LABS: MANUAL DIFFERENTIAL YES; MEAN CELL VOLUME 90.1 fL CALC (80.0-100.0)
[2018-10-11 16:28] LABS: BAND 9 % (0-8)
[2018-10-11] MEDS ORDERED: OXYCODONE HCL5 MG PO (16:34)
[2018-10-11] MEDS ORDERED: ACETAMINOPHEN500 M1 PO (16:35)
[2018-10-11] MEDS ORDERED: GABAPENTIN100 MG PO (16:36)
--- NOTE | 2018-10-11 16:40 | NUR ---
DAUGHTERS REPORTS PATIENT HAS BEEN WEAK AND NOT EATING SINCE LAST PM, WTH CONFUSION. PATIENT ALERT, WITH GARBLED SPEECH. MUCUS MEMBRANES NOTED TO BE DRY. LITER BOLUS CONTINUES TO INFUSE.
[2018-10-11 16:41] LABS: ALBUMIN 2.1 g/dL (3.2-5.0); CREATININE 1.3 mg/dL (0.5-1.0); TOTAL PROTEIN 5.1 g/dL (6.3-8.2)
[2018-10-11 16:42] LABS: BILIRUBIN, TOTAL 1.7 mg/dL (0.0-1.4)
--- NOTE | 2018-10-11 17:40 | NUR ---
PATIENT ASSISTED ONTO BEDPAN. URINE SAMPLE OBTIANED, NOTED TO BE SONYA IN COLOR. PAIN LEVEL 7/10 TO LEFT BREAST AND LEFT UPPER EXTREMITY. FAMILY AT BEDSIDE REPORTS CANCER CONTINUES TO BE TREATED.
[2018-10-11 17:59] LABS: URINE BILIRUBIN - DIPSTICK NEGATIVE (NEGATIVE); URINE BLOOD DIPSTICK TRACE-INTACT (NEGATIVE); URINE GLUCOSE - DIPSTICK NEGATIVE (NEGATIVE); URINE KETONE NEGATIVE (NEGATIVE); URINE NITRITE - DIPSTICK NEGATIVE (Negative); URINE PROTEIN - DIPSTICK NEGATIVE (NEG-TRACE)
[2018-10-11 18:04] LABS: URINE COLOR DK. YELLOW; URINE LEUK ESTERASE LARGE (NEGATIVE)
[2018-10-11 18:06] LABS: URINE BACTERIA FEW hpf; URINE SQUAMOUS EPITHELIAL CELL FEW EPI/hpf (0-FEW); URINE WBC 20-50 WBC/hpf (0-5)
--- NOTE | 2018-10-11 18:49 | NUR ---
REPORT GIVEN TO LESLY YOUNGER.
--- NOTE | 2018-10-11 19:08 | NUR ---
REPORT CALLED TO LESLY MARCOS.
--- NOTE | 2018-10-11 19:24 | NUR ---
OT TRANSPORTED TO [facility]
[2018-10-11 19:25] VITALS: BP 97/59
--- NOTE | 2018-10-11 19:25 | NUR ---
PT ARRIVED TO THE FLOOR VIA STRETCHER ACCOMPANIED BY 6 FAMILY MEMBERS AND TWO SMALL CHILDREN. FAMILY WAS ASKED TO WAIT IN WAITING ROOM WHILE PT WAS SITUATED. W/ASSISTANCE OF ED NURSE, PT WAS TRANSFERRED TO BED AND V/S WERE OBTAINED. PT APPEARS TO BE STABLE AT THIS TIME. SHE IS NOT VERBALIZING MUCH AT THIS TIME, APPEARS TO BE IN PAIN, MOANS EVERYTIME WE TOUCH HER. ED NURSE REPORTS THAT SHE HAD JUST BEEN MEDICATED PRIOR TO ARRIVING TO THE FLOOR. ANTIBIOTIC THERAPY IS RUNNING AT THIS TIME. PT HAS VERY LARGE WOUNDS TO HER LEFT BREAST, AXILLARY AREA AND BACK UPPER ARM. DRESSING TO WOUND IS REPORTEDLY FROM HOME AND IS SOILED AND SATURATED. DRESSING REMOVED AT THIS TIME. PICTURES OBTAINED FOR THE CHART AND WOUND LIGHTLY COVERED W/MOISTENED 4X4 GAUZE AND ABD PADS USING PAPER TAPE. POC DISCUSSED W/FAMILY. PHYSICIAN NOTIFIED FOR ORDERS.
--- NOTE | 2018-10-11 21:45 | NUR ---
POC DISCUSSED W/PHYSICIAN AND ORDERS RECEIVED. PHYSICIAN DENIED FURTHER ANTIBIOTIC THERAPY AT THIS TIME REPORTING THAT PT WILL BE COMFORT MEASURES ONLY.
--- NOTE | 2018-10-11 22:43 | NUR ---
PT APPEARED TO BE IN PAIN, AUDIBLE MOANING, BUT WHEN ASKED ABOUT HER PAIN AND NEED FOR PAIN MEDICATION SHE REFUSED STATING "NO." ATTEMPTS WERE MADE TO COMMUNICATE W/PT AND CLARIFY THAT PT IS LOC. SHE WOULD NOT GIVE ME HER NAME, , YEAR OR LOCATION, BUT SHE SUDDENLY STATED, "NO NEED TO REASSESS ME." THEN WHEN ASKED AGAIN IF SHE WANTED ANYTHING FOR PAIN SHE REPLIED, "NO." WILL HOLD PAIN MEDICATION AT THIS TIME AND REASSESS AND CONTINUE TO MONITOR FOR NEEDS. LIGHTS TURNED LOW FOR COMFORT.
[2018-10-12 03:58] VITALS: BP 96/63
[2018-10-12 05:05] LABS: HEMATOCRIT 27.7 % (37.0-47.0); HEMOGLOBIN 9.2 g/dl (12.0-16.0); IMMATURE GRANULOCYTES 1.6 % (0.0-5.0); MEAN CORPUSCULAR HGB 30.6 pG CALC (26.0-32.0); MEAN CORPUSCULAR HGB CONC 33.2 g/L CALC (32.0-36.0); NEUT# 8.88 thou/uL (2.00-7.15); RED BLOOD COUNT 3.01 mill/uL (4.20-5.60); RED CELL DISTRI WIDTH 18.8 % (11.5-15.5)
--- NOTE | 2018-10-12 05:05 | NUR ---
PT BLADDER SCANNED DUE TO NOT URINATING AND DISTENSION IN BLADDER AREA. 547MLS SCANNED. PT PLACED ON BEDPAN AGAIN AND WAS ABLE TO URINATE 400MLS OF DARK SONYA CLEAR URINE. PT MEDICATED FOR PAIN DUE TO MOANING AND GROANING AND SAYING "IT HURTS." PT UNABLE TO VERBALIZED WHERE HER PAIN WAS. WILL CONTINUE TO MONITOR. CALL LIGHT NEXT TO PTS HAND.
--- NOTE | 2018-10-12 05:07 | NUR ---
PT WAS PROVIDED BRANDY CARE AND REPOSITIONED.
[2018-10-12 05:21] LABS: ALBUMIN 1.8 g/dL (3.2-5.0); ALKALINE PHOSPHATASE 389 u/l (38-126); ANION GAP 11 (6-22 (CALC)); BILIRUBIN, TOTAL 1.9 mg/dL (0.0-1.4); BUN 15 mg/dL (7-17); BUN/CREATININE RATIO 17 (12-20 (CALC)); CARBON DIOXIDE 25 mmol/l (22-30); CHLORIDE 101 mmol/l (95-108); CREATININE 0.9 mg/dL (0.5-1.0); GFR > 60 ML/MIN (>=60 (CALC)); GFR FOR AFR.AMER. > 60 ML/MIN (>=60 (CALC)); POTASSIUM 3.9 mmol/l (3.5-5.1); SGOT/AST 89 u/l (14-36); SODIUM 133 mmol/l (137-146); TOTAL PROTEIN 4.5 g/dL (6.3-8.2)
--- NOTE | 2018-10-12 07:00 | NUR ---
SHIFT CHANGE REPORT, PT LYING IN SUPINE POSITION, RESPONDS TO COMMANDS BUT NOT VERBALLY TO QUESTIONS, PROFUSE DRAINAGE OBSERVED WITH FOUL ODOR OBSERVED TO LEGIONS ON CHEST AND BACK, IVF INFUSING TO SITE IN LEFT IJ, LEFT ARM RIGID, FORM AND SWOLEN, ELEVATED ON PILLOW, WILL CONTINUE TO MONITOR.
[2018-10-12 14:40] VITALS: BP 87/58
--- NOTE | 2018-10-12 15:55 | NUR ---
HOSPICE NURSE CONSULTED AND EVALUATED PT, NEW ORDERS WRITTEN, HERNANDEZ CATHETER PLACED FOR COMFORT CARE, FAMILY IN ROOM AND PLANS DISCUSSED WITH THEM, THEY STATED UNDERSTANDING. DR BETTS DISCUSSED DNR WITH FAMILY THIS AM AND THEY ALL STATED UNDERSTANDING AND AGREED TO PLANS, WILL CONTINUE TO MONITOR.
== END 2018-10-12 16:20 | disposition hospice, inpatient (51) | DRG 598 ==
LOC: ED 14:58 → ED-I 18:02 → ED 18:22 → MS2 18:23
PROVIDERS: Emergency Medicine; ADMIT Internal Medicine Nephrology; ATTEND Internal Medicine Nephrology
PROC: 0T9B70Z Drainage of Bladder with Drainage Device, Via Natural or Artificial Opening (ICD-10-PCS; principal; 2018-10-12)
DX: C50.912 Malignant neoplasm of unspecified site of left female breast (principal); C79.2 Secondary malignant neoplasm of skin; N39.0 Urinary tract infection, site not specified; R62.7 Adult failure to thrive; K72.90 Hepatic failure, unspecified without coma; E11.9 Type 2 diabetes mellitus without complications; D64.9 Anemia, unspecified; I10 Essential (primary) hypertension; I25.10 Atherosclerotic heart disease of native coronary artery without angina pectoris; Z51.5 Encounter for palliative care; Z66 Do not resuscitate; Z90.12 Acquired absence of left breast and nipple; Z79.899 Other long term (current) drug therapy
CPT/HCPCS: G0378

== ENCOUNTER 2018-10-12 16:21 | Inpatient (IN) | payer OTHER, BC ==
--- NOTE | 2018-10-12 09:00 | NUR ---
DRESSINGS TO LEFT BACK SATURATED WITH FOUL SMELLING DRAINAGE, REMOVED AND WOUNDS CLEANED, NEW DRESSINGS APPLIED AND SECURED WITH PAPER TAPE.
--- NOTE | 2018-10-12 16:00 | NUR ---
D/C TO INHOUSE HOSPICE UNTIL BED AVAILABLE PER SUKHDEEP (TRIMMER MACHINE)
[~2018-10-12 16:21] MED LIST changes: +ACETAMINOPHEN500 M1 PO; +GABAPENTIN100 MG PO; +OXYCODONE HCL5 MG PO
--- NOTE | 2018-10-12 20:27 | NUR ---
FAMILY AT BEDSIDE X5 W/TWO SMALL CHILDREN PLAYING. PT IS MOANING AND APPEARS IN PAIN. EYES ARE CLOSED AND PT NOT RESPONDING TO MY QUESTIONS. FAMILY ASKED FOR PT TO BE MEDICATED FOR PAIN AND PT APPEARS TO BE UNCOMFORTABLE/MEDICATED AT THIS TIME FOR COMFORT. CHELLE REEVALUATE FOR EFFECTIVENESS OF PAIN MEDICATION.
--- NOTE | 2018-10-13 00:53 | NUR ---
PT MEDICATED FOR PAIN AT THIS TIME. FAMILY IN W/PT AT THIS TIME. LIGHTS AND TV ARE OFF. PT IS MOANING AND GROANING, APPEARS IN PAIN.
--- NOTE | 2018-10-13 01:30 | NUR ---
PT APPEARS TO BE RESTING COMFORTABLY AT THIS TIME. DAUGHTER IS AT BEDSIDE.
--- NOTE | 2018-10-13 05:00 | NUR ---
DRESSING ADDED TO MID STERNAL CHEST AREA, LARGE AMOUNT OF DRAINAGE POOLING W/IN WOUND. REMAINING DRESSING REMAINS CDI. PADS UNDER PT HAD YELLOW DRAINAGE AND WERE REPLACED W/CLEAN. DAUGHTER IS AT BEDSIDE. PT WAS MEDICATED FOR PAIN PRIOR TO TURNING. HERNANDEZ CATHETER IS PATENT AND STRAP TO RUE IN PLACE. PT NON-RESPONSIVE TO OUR QUESTIONS, BUT CUSSES AND MOANS WE WORK WITH HER. SHE WILL OPEN HER EYES, BUT NOT MAKE CONTACT.
[2018-10-13 05:02] VITALS: BP 88/61
--- NOTE | 2018-10-13 07:52 | NUR ---
PRELIMINARY BLOOD CULTURE RESULTS, ONE AEROBIC BOTTLE GROWNING GRAM POSITIVE COCCI PER RADU/LAB, CALLED TO DR BETTS
[2018-10-13 08:44] VITALS: BP 90/52
--- NOTE | 2018-10-13 08:46 | NUR ---
REPORT WAS RECEIVED FROM HEMANT. ASSESSMENT DONE. PT IS NON-VERBAL AT THIS TIME. PT MOANS DUE TO PAIN. MEDICATED PT WITH DILAUDID SEE EMAR. DRESSING IN PLACE IN LEFTBREAST AND BACK IT HAS A SMELL TO IT. DAUGHTER IN ROOM. DAUGHTER STATED PT HAD A BM ON THE 10/10/18. CALL LIGHT IN REACH.
--- NOTE | 2018-10-13 09:57 | NUR ---
MARJORIE NURSE FROM [facility] AT BEDSIDE WITH PT AND FAMILY TO DISCUSS POC.
--- NOTE | 2018-10-13 11:52 | NUR ---
PT IS MOANING. MEDICATED PT WITH DILAUDID FOR PAIN SEE EMAR. PO FLUIDS PROVIDED. FAMILY IN ROOM. CALL LIGHT IN REACH.
--- NOTE | 2018-10-13 14:00 | NUR ---
BRANDY CARE DONE. HERNANDEZ IS PATENT WITH SONYA URINE. DRESSING CHANGE TO RIGHT BREAST AND BACK. LARGE AMOUNT OF YELLOW DRAINAGE NOTED. PT TOLERATED WELL. FAMILY IN ROOM. CALL LIGHT IN REACH.
--- NOTE | 2018-10-13 15:10 | NUR ---
MEDICATED PT WITH DILAUDID FOR PAIN SEE EMAR. LEFT ARM ELEVATED. FAMILY MEMBERS IN ROOM . CALL LIGHT IN REACH.
[2018-10-13 16:00] VITALS: BP 92/50
--- NOTE | 2018-10-13 19:30 | NUR ---
PATIENT RESTING IN BED WITH EYES CLOSED-FAMILY AT BEDSIDE. PATIENT APPEARS COMFORTABLE AT THIS TIME. IV SITE TO RIGHT HAND INTACT AND IS HEALTHY AT THIS TIME. HERNANDEZ PATENT WITH SMALL AMT OF URINE PRESENT. PATIENT IS AWAITING TRANSFER TO HOSPICE WHEN BED AVAILABLE. DRESSING TO LEFT BREAST AND CHEST INTACT. CALL LIGHT IN REACH. RESPITE CART PROVIDED FOR FAMILY. CALL LIGHT IN REACH. WILL CONT TO MONITOR.
--- NOTE | 2018-10-13 22:38 | NUR ---
PATIENT RESTING IN BED-MOANS OUT AND OPENS EYES WHEN SPOKEN TO. FAMILY AT BEDSIDE. PATIENT MEDICATED WITH DILAUDID 1MG IVP FOR PAIN VIA RIGHT HAND IV SITE. MEDICATED WITH ATIVAN 0.5MG IVP FOR COMFORT. CALL LIGHT IN REACH. WILL CONT TO MONITOR.
[2018-10-13 23:45] VITALS: BP 90/54
--- NOTE | 2018-10-14 00:47 | NUR ---
PATIENT RESTING IN BED WITH DAUGHTER AT BEDSIDE. ALL DRESSINGS SATURATED WITH FOUL SMELLING SEROUS FLUID. WET TO DRY SALINE AND BETADINE SOLUTION DRESSINGS APPLIED TO LEFT BREAST AND CHEST. DRESSING TO LEFT ARM CHANGED WITH THE SAME AND LEFT UPPER BACK WITH THE SAME. PATIENT INCONT OF SMALL AMT OF PASTY BROWN STOOL. BRANDY-CARE AND HERNANDEZ CATH CARE WAS DONE. BARRIER CREAM APPLIED TO BUTTOCKS AREA. MOUTH CARE WAS DONE AND VASELINE APPLIED TO LIPS. PATIENT WAS TURNED AND REPOSITIONED. CALL LIGHT IN REACH. WILL CONT TO MONITOR.
--- NOTE | 2018-10-14 02:03 | NUR ---
PATIENT RESTING ON LEFT SIDE. PATIENT WITH NOISEY BREATHING-MEDICATED WITH DILAUDID 1MG IVP FOR PAIN, ATIVAN 0.5MG IVP FOR COMFORT AND LEVSIN 0.125MG SL FOR EXCESS SEACREATIONS. DAUGHTER REMAINS AT BEDSIDE. CALL LIGHT IN REACH. WILL CONT TO MONITOR.
--- NOTE | 2018-10-14 05:30 | NUR ---
PATIENT WITH THICK ORAL SEACREATION-SUCTION FOR MODERATE OF THICK ORAL SECREATIONS. PATIENT PROVIDED WITH ORAL HYGEINE USING MOIST TOOTHEETE SWABS. VAASELINE APPLIED TO LIPS. PATIENT TURNED AND REPOSITION ON RIGHT SIDE. HERNANDEZ EMPTIED FOR 250CC OF CLOUDY DARK SONYA URINE. PATIENT MEDICATED DILAUDID 1MG IVP AND WITH ATIVAN 0.5MG IVP FOR COMFORT. DAUGHTER REMAINS AT BEDSIDE. CALL LIGHT IN REACH. WILL CONT TO MONITOR. AWAITING TRANFER TO HOSPICE WHEN BED AVAILABLE.
--- NOTE | 2018-10-14 07:05 | NUR ---
REPORT WAS RECEIVED FROM MICHAEL. PT IS RESTING IN BED WITH NO S/S OF DISTRESS NOTED. FAMILY IN ROOM. CALL LIGHT IN REACH.
--- NOTE | 2018-10-14 09:22 | NUR ---
MEDICATED PT WITH DILAUDID FOR PAIN SEE EMAR. ASSESSMENT DONE. PT NON-VERBAL. HERNANDEZ PATNET WITH SONYA URINE. DRESSING IN PLACE IN LEFT BREAST AND BACK. FAMILY MEMBERS IN ROOM. CALL LIGHT IN REACH.
[2018-10-14 09:51] VITALS: BP 71/46
[2018-10-14] MEDS ORDERED: HYDROMORPHONE2 MG/ML IV (11:15)
--- NOTE | 2018-10-14 12:00 | NUR ---
Discharge instructions given. Patient verbalizes understanding of same. Discharged in stable condition via Medical Transport to *Other with staff. All belongings sent with pt.
== END 2018-10-14 11:59 | disposition hospice, inpatient (51) | DRG 951 ==
LOC: MS2 16:21
PROVIDERS: ADMIT Internal Medicine; ATTEND Internal Medicine
DX: Z51.5 Encounter for palliative care (principal); C79.2 Secondary malignant neoplasm of skin; N39.0 Urinary tract infection, site not specified; C78.7 Secondary malignant neoplasm of liver and intrahepatic bile duct; C50.912 Malignant neoplasm of unspecified site of left female breast; R62.7 Adult failure to thrive; E11.9 Type 2 diabetes mellitus without complications; D64.9 Anemia, unspecified; I10 Essential (primary) hypertension; K72.90 Hepatic failure, unspecified without coma; K74.60 Unspecified cirrhosis of liver; I25.10 Atherosclerotic heart disease of native coronary artery without angina pectoris; Z66 Do not resuscitate; Z90.12 Acquired absence of left breast and nipple; Z92.3 Personal history of irradiation; Z92.21 Personal history of antineoplastic chemotherapy
CPT/HCPCS: J2060